=== PATIENT | male | born 1995 | race African-American/Black ===

== ENCOUNTER 2017-10-12 17:59 | Emergency (ER) | payer SELFPAY ==
[~2017-10-12 17:59] MED LIST: AMOX875T PO; OFLO.3%A LEFT EAR
[2017-10-12 18:04] VITALS: BP 154/78; PULSE 87; RESP 16; TEMP 99; O2SAT 97
[2017-10-12] MEDS ORDERED: AMOX500T PO (18:25)
--- NOTE | 2017-10-12 18:25 | PD ---
HPI Chief Complaint: ENT Complaint Time Seen by Provider: 18:15 Travel History International Travel<30 days: No Contact w/Intl Traveler<30days: No Traveled to known affect area: No History of Present Illness HPI 22-year-old male here with sore throat and fever 3 days. He also noticed white patches on his tonsils and believes he is strep throat. He reports prior cases of strep with similar symptoms. Denies difficulty swallowing or change in voice. Symptom severity is moderate. No aggravating or alleviating factors. PFSH Past Medical History Medical History: Denies Significant Hx Diminished Hearing: No Immunizations Current: Yes Tetanus Vaccination: > 5 Years Influenza Vaccination: No Past Surgical History Tympanostomy Tube: Yes (bilat ears) Social History Alcohol Use: No Tobacco Use: No Substance Use: No Allergies-Medications (Allergen,Severity, Reaction): Coded Allergies: No Known Allergies (Verified Adverse Reaction, Unknown, 10/12/17) Reported Meds & Prescriptions Reported Meds & Active Scripts Active No Active Prescriptions or Reported Medications Review of Systems Except as stated in HPI: all other systems reviewed are Neg General / Constitutional: Positive: Fever Eyes: No: Visual changes HENT: Positive: Sore Throat, No: Headaches Cardiovascular: No: Chest Pain or Discomfort Respiratory: No: Shortness of Breath Gastrointestinal: Positive: Nausea Genitourinary: No: Dysuria Musculoskeletal: No: Pain Skin: No Rash Physical Exam Narrative GENERAL: Alert and well-appearing 22-year-old male SKIN: Warm and dry. No rash HEAD: Normocephalic. EYES: No injection or drainage. ENT: Pharyngeal erythema with moderate tonsillar hypertrophy and exudate. Uvula is midline. Airways patent. Mucous membranes are moist. NECK: Supple, trachea midline. Mild anterior cervical lymphadenopathy CARDIOVASCULAR: Regular rate and rhythm without murmurs, gallops, or rubs. RESPIRATORY: Breath sounds equal bilaterally. No accessory muscle use. GASTROINTESTINAL: Abdomen soft, non-tender, nondistended. MUSCULOSKELETAL: No cyanosis, or edema. BACK: No CVA tenderness. Data Data Last Documented VS Vital Signs Date Time Temp Pulse Resp B/P (MAP) Pulse Ox O2 Delivery O2 Flow Rate FiO2 10/12/17 18:09 (103) 10/12/17 18:04 99.0 87 16 97 MDM Medical Decision Making Medical Screen Exam Complete: Yes Emergency Medical Condition: Yes Differential Diagnosis Strep pharyngitis, viral pharyngitis, mononucleosis Narrative Course 22-year-old male here with exudative tonsillitis. He is well-appearing. Vital signs are stable. Will be treated with amoxicillin. Diagnosis Primary Impression: Tonsillitis Referrals: Primary Care Physician Additional Instructions: Antibiotics as directed. Tylenol and ibuprofen for fever. Scripts Amoxicillin (Amoxicillin) 500 Mg Tab 500 MG PO TID for Infection for 10 Days, TAB 0 Refills Prov: Jesika Peña 10/12/17 Disposition: 01 DISCHARGE HOME Condition: Stable Jesika Peña October 12, 2017 18:25
== END 2017-10-12 18:44 | disposition home or self-care (01) ==
LOC: PHEFT 17:59
DX: J03.90 Acute tonsillitis, unspecified (principal)
CPT/HCPCS: 99283